=== PATIENT | male | born 1985 | race Asian ===

== ENCOUNTER 2017-10-30 09:21 | Emergency (ER) | payer OTHER ==
[2017-10-30] MEDS: LIDO:MAALOX:DONNATAL 1:1:1 15 ML SINGLE DOSE SWSW (10:50)
[2017-10-30 10:56] LABS: ADD MAN DIFF? NO
[2017-10-30 11:12] LABS: ANION GAP 10 (6-14); BLOOD UREA NITROGEN 13 mg/dL (8-26); BUN/CREATININE RATIO 13 (6-20); CALCIUM 8.8 mg/dL (8.5-10.1); CARBON DIOXIDE 26 mmol/L (21-32); CHLORIDE 104 mmol/L (98-107); GFR 85.5; GLUCOSE 95 mg/dL (70-99); POTASSIUM 4.2 mmol/L (3.5-5.1); SODIUM 140 mmol/L (136-145)
[2017-10-30 11:18] LABS: ALK PHOS 89 U/L (46-116); ALT (SGPT) 48 U/L (16-63); AST (SGOT) 22 U/L (15-37); LIPASE 133 U/L (73-393); TOTAL BILIRUBIN 0.5 mg/dL (0.2-1.0); TOTAL PROTEIN 7.9 g/dL (6.4-8.2)
[2017-10-30 11:21] LABS: BASO % 1 % (0-3); EOS # 0.1 x10^3/uL (0.0-0.7); EOS % 3 % (0-3); HEMOGLOBIN 15.1 g/dL (13.0-17.5); LYMPH # 0.9 x10^3/uL (1.0-4.8); LYMPH % 18 % (24-48); MEAN CORPUSCULAR HEMOGLOBIN 30 pg (25-35); MEAN CORPUSCULAR HGB CONC 33 g/dL (31-37); MEAN CORPUSCULAR VOLUME 91 fL (79-100); MONO # 0.3 x10^3/uL (0.0-1.1); MONO % 6 % (0-9); NEUT # 3.5 x10^3uL (1.8-7.7); NEUT % 73 % (31-73); PLATELET COUNT 180 x10^3/uL (140-400); RED BLOOD COUNT 5.07 x10^6/uL (4.30-5.70); WHITE BLOOD COUNT 4.8 x10^3/uL (4.0-11.0)
[2017-10-30 11:23] LABS: TROPONINI < 0.017 ng/mL (0.000-0.055)
[2017-10-30 11:26] LABS: CKMB MASS < 0.5 ng/mL (0.0-3.6); CREATINE KINASE 102 U/L (39-308)
== END 2017-10-30 13:29 | disposition home or self-care (01) ==
LOC: ER 09:21
DX: R07.2 Precordial pain (principal); K21.9 Gastro-esophageal reflux disease without esophagitis; G89.29 Other chronic pain
CPT/HCPCS: 36415; 71046; 76700; 80053; 82553; 83690; 84484; 85025; 93005; 99285-25

== ENCOUNTER 2019-06-14 12:21 | Emergency (ER) | payer MEDICAID, OTHER ==
[~2019-06-14] VITALS: Ht 157.5 cm; Wt 65.8 kg
[~2019-06-14 12:21] MED LIST: OMEP20CA10 PO
[2019-06-14 12:50] VITALS: BP 99/62
[2019-06-14] MEDS ORDERED: KETOROLAC 60 MG/2 ML VIAL. IM ONE (13:00)
--- NOTE | 2019-06-14 13:51 | PHYS DOC ---
Past Medical History Past Medical History: No Pertinent History, Other Additional Past Medical Histor: chronic back pain Past Surgical History: No Surgical History Alcohol Use: None Drug Use: None Adult General Chief Complaint Chief Complaint: BACK PAIN OR INJURY HPI HPI Patient is a 33 year old non- Thai speaking male who presents with cough back pain. Patient states he was bending to take something out of the microwave last night and felt a sudden onset of pain in his lower back as a constant pain that getting worse with movement. Patient rated his pain as a severe pain and denies focal neurodeficit and urine and bowel incontinence and fever and chills. Review of Systems Review of Systems Constitutional: Denies fever or chills [] Eyes: Denies change in visual acuity, redness, or eye pain [] HENT: Denies nasal congestion or sore throat [] Respiratory: Denies cough or shortness of breath [] Cardiovascular: No additional information not addressed in HPI [] GI: Denies abdominal pain, nausea, vomiting, bloody stools or diarrhea [] : Denies dysuria or hematuria [] Musculoskeletal: Reports back pain Integument: Denies rash or skin lesions [] Neurologic: Denies headache, focal weakness or sensory changes [] Endocrine: Denies polyuria or polydipsia [] All other systems were reviewed and found to be within normal limits, except as documented in this note. Current Medications Current Medications Current Medications Medications (Trade) Dose Ordered Sig/[facility] Start Time Stop Time Status Last Admin Dose Admin Ketorolac Tromethamine (Toradol Im) 60 mg 1X ONCE 06/14/19 13:00 06/14/19 13:01 DC 06/14/19 13:51 60 MG Allergies Allergies Allergies Coded Allergies Type Severity Reaction Last Updated Verified No Known Drug Allergies 10/06/14 No Physical Exam Physical Exam Constitutional: Well developed, well nourished, mild distress, non-toxic appearance. [] HENT: Normocephalic, atraumatic. Eyes: PERRLA, EOMI, conjunctiva normal, no discharge. [] Neck: Normal range of motion, no tenderness, supple, no stridor. [] Cardiovascular:Heart rate regular rhythm, no murmur [] Lungs & Thorax: Bilateral breath sounds clear to auscultation [] Abdomen: Bowel sounds normal, soft, no tenderness, no masses, no pulsatile masses. [] Skin: Warm, dry, no erythema, no rash. [] Back: No midline tenderness, bilateral paraspinal muscle spasm and tenderness, painful range of motion of lumbar spine, no CVA tenderness. [] Extremities: No tenderness, no cyanosis, no clubbing, ROM intact, no edema. [] Neurologic: Alert and oriented X 3, no focal deficits noted. [] Psychologic: Affect normal, judgement normal, mood normal. [] Current Patient Data Vital Signs Vital Signs Date Time Temp Pulse Resp B/P (MAP) Pulse Ox O2 Delivery O2 Flow Rate FiO2 06/14/19 12:50 97.8 59 18 99/62 (74) 98 Room Air 97.8 EKG EKG [] Radiology/Procedures Radiology/Procedures [][facility] [address] [place], [place] [id number] IMAGING REPORT Signed PATIENT: BIANCA CALLAWAY ACCOUNT: [id number] : 1985 LOCATION: ER AGE: 33 SEX: M EXAM STATUS: REG ER ORD. PHYSICIAN: BENJI VALDEZ MD REASON: low back pain after bending over PROCEDURE: LUMBAR SPINE 2-3V Examination: 2 views of the lumbar spine HISTORY: History of low back pain after bending COMPARISON: None available. Findings: The lumbar vertebral body heights are maintained. No evidence of listhesis. The facets are well aligned. IMPRESSION: No acute osseous findings. Electronically signed by: Leonardo Linton MD (06/14/2019 1:56 PM) [place] [id number] DICTATED and SIGNED BY: LEONARDO LINTON MD DATE: 06/14/19 1356 Course & Med Decision Making Course & Med Decision Making I've spoken with the patient and/or caregivers. I've explained the patient's condition, diagnosis and treatment plan based on information available to me at this time. I've answered the patient's and/or caregivers questions and addressed any concerns. The patient and/or caregivers have a good understanding the patient's diagnosis, condition and treatment plan as can be expected at this point. Vital signs have been stabilized. The patient's condition is stable for discharge from the emergency department. The patient will pursue further outpatient evaluation with her primary care provider or other designated consulting physician as outlined in the discharge instructions. Patient and/or caregivers are agreeable to this plan of care and follow-up instructions have been explained in detail. The patient and/or caregivers have received these instructions in written format and expressed understanding of these discharge instructions. The patient and her caregivers are aware that if any significant change in condition or worsening of symptoms should prompt him to immediately return to this of the closest emergency department. If an emergent department is not readily available I would encourage him to call 911. Dragon Disclaimer Dragon Disclaimer This electronic medical record was generated, in whole or in part, using a voice recognition dictation system. Departure Departure Impression: Primary Impression: Acute lumbosacral myofascial strain Disposition: HOME, SELF-CARE (at 1422) Condition: IMPROVED Referrals: Rogelio WEST MD (PCP) Patient Instructions: Lumbosacral Strain Additional Instructions: Apply ice on your back Drink plenty of liquids Follow-up with your primary care physician in 3-5 days Return to ER if not getting better Scripts Tramadol Hcl (ULTRAM) 50 Mg Tablet 50 MG PO Q6HRS PRN for PAIN, #14 TAB 0 Refills Prov: BENJI VALDEZ MD 06/14/19 Cyclobenzaprine Hcl (CYCLOBENZAPRINE HCL) 10 Mg Tablet 1 TAB PO TID, #21 TAB Prov: BENJI VALDEZ MD 06/14/19 Problem Qualifiers Primary Impression: Acute lumbosacral myofascial strain Encounter type: initial encounter Qualified Codes: S39.012A - Strain of muscle, fascia and tendon of lower back, initial encounter BENJI VALDEZ MD Jun 14, 2019 13:51
--- NOTE | 2019-06-14 14:00 | RAD ---
Examination: 2 views of the lumbar spine HISTORY: History of low back pain after bending COMPARISON: None available. Findings: The lumbar vertebral body heights are maintained. No evidence of listhesis. The facets are well aligned. IMPRESSION: No acute osseous findings. Electronically signed by: Leonardo Linton MD (06/14/2019 1:56 PM) [place] [id number]
[2019-06-14] MEDS ORDERED: TRAM-48 PO (14:24)
[2019-06-14] MEDS ORDERED: CYCL10TA2 PO (14:24)
== END 2019-06-14 14:52 | disposition home or self-care (01) ==
LOC: ER 12:21
DX: S39.012A Strain of muscle, fascia and tendon of lower back, initial encounter (principal); G89.29 Other chronic pain; X50.1XXA Overexertion from prolonged static or awkward postures, initial encounter; Y93.89 Activity, other specified; Y92.89 Other specified places as the place of occurrence of the external cause; Y99.8 Other external cause status
CPT/HCPCS: 72100; 96372; 99284; J1885